=== PATIENT | female | born 1940 | race Caucasian/White ===

== ENCOUNTER 2022-01-24 03:50 | Inpatient (IN) | payer MEDICARE, BC ==
[~2022-01-24] VITALS: Ht 149.9 cm; Wt 71.2 kg
--- NOTE | 2022-01-24 03:57 | NUR ---
Dr Muhammad at bedside, MSE in progress
[2022-01-24] MEDS ORDERED: VANCOMYCIN IV 1,000 MG in IV DEXTROSE 5% 250 ML IV ONE (04:00)
[2022-01-24] MEDS ORDERED: VANCOMYCIN IV 200 ML ONE (04:18)
[2022-01-24 04:32] LABS: MEAN CORPUSCULAR HEMOGLOBIN 29.3 uug (24.7-32.8); MEAN CORPUSCULAR VOLUME 87.3 fL (75.5-95.3); PLATELET COUNT (AUTO) 198 K/uL (179-408)
[2022-01-24 04:34] LABS: CARBON DIOXIDE 31 mmol/L (21-32); CHLORIDE 106 mmol/L (98-107); CREATININE 0.7 mg/dL (0.6-1.3); GLUCOSE 116 mg/dL (74-106); POTASSIUM 2.9 mmol/L (3.5-5.1); UREA NITROGEN, BLOOD 7 mg/dL (7-18)
[2022-01-24 04:51] LABS: ALANINE AMINOTRANSFERASE 23 U/L (14-59); ALKALINE PHOSPHATASE 83 U/L (50-136); ASPARTATE AMINOTRANSFERASE 13 U/L (15-37); BILIRUBIN,DIRECT 0.3 mg/dL (0.0-0.2); BILIRUBIN,TOTAL 1.1 mg/dL (0.2-1.0); TOTAL PROTEIN, SERUM 6.5 g/dL (6.4-8.2)
[2022-01-24] MEDS ORDERED: POTASSIUM CHLORIDE 20 MEQ TAB.PRT.SR PO ONE (05:15)
[2022-01-24] MEDS ORDERED: POTASSIUM CHLORIDE 20 MEQ TAB.PRT.SR ONE (05:23)
--- NOTE | 2022-01-24 05:27 | NUR ---
Patient has been accepted by Tram Voss NP
[2022-01-24] MEDS ORDERED: HYDROCODONE/APAP 10-325 MG TABLET PO PRN (05:30)
[2022-01-24] MEDS ORDERED: ONDANSETRON 4 MG/2 ML VIAL IV PRN (05:30)
[2022-01-24] MEDS ORDERED: IV NS 1000 ML 1,000 ML IV PRN (05:30)
[2022-01-24] MEDS ORDERED: REMEDY ESSENTIAL ZINC PASTE 113 GM TP PRN (05:30)
[2022-01-24] MEDS ORDERED: CEFTRIAXONE 1 G in IV DEXTROSE 5% 50 ML IV SCH (05:30)
[2022-01-24] MEDS ORDERED: ACETAMINOPHEN 325 MG TABLET PO PRN (05:30)
[2022-01-24] MEDS ORDERED: POTASSIUM CHLORIDE 20 MEQ POWDER PACKET ONE (05:30)
[2022-01-24] MEDS ORDERED: POTASSIUM CHLORIDE 20 MEQ POWDER PACKET GT ONE (05:30)
[2022-01-24] MEDS ORDERED: MAGNESIUM HYDROXIDE 30 ML LIQUID UDC PO PRN (05:30)
[2022-01-24] MEDS ORDERED: CLOP75TA15 PO (07:22)
[2022-01-24] MEDS ORDERED: ZOLP10TA2 PO (07:22)
[2022-01-24] MEDS ORDERED: GABA600T12 PO (07:22)
[2022-01-24] MEDS ORDERED: TELM80TA2 PO (07:22)
[2022-01-24] MEDS ORDERED: FURO-152 PO (07:22)
[2022-01-24] MEDS ORDERED: NEBI20TA2 PO (07:22)
[2022-01-24] MEDS ORDERED: ASPI81TA31 PO (07:22)
[2022-01-24] MEDS ORDERED: CEFTRIAXONE /D5W 50ML IVPB **ER PYXIS IV ONE (07:28)
--- NOTE | 2022-01-24 09:15 | NUR ---
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 PT PRESENT IN ER WITH SWOLLEN LEANNE LOWER LEG. PT IS DX IS CELLULITIS. PT AO X4.AMBULATORY WITH ASSIST AND WALKER. NO PAIN COMPLAIN. NO SOB. NO ACUTE DISTRESS. PT HAS HISTORY OF CVA W/ R/SIDE WEAKNESS RESIDUAL. EDEMATOUS LEANNE LOWER LEG WITH INTACT BLISTER NO DRAINAGE. COVID NEG. PT WILL BE ADMITTED TO MED/SURG ON RM 301-A.
--- NOTE | 2022-01-24 09:58 | NUR ---
REPORT WAS GIVEN TO RN M/S. PT WAS TRANSFERED TO ROOM #301A.
--- NOTE | 2022-01-24 09:58 | NUR ---
pt arrived at the unitpt is on rm 301-a
--- NOTE | 2022-01-24 10:16 | NUR ---
WOUND CARE CONSULT: PT PRESENTS WITH EDEMA, REDNESS AND INTACT BLISTERS TO BILATYERAL LOWER LEGS, AREA OF EXCORIATION TO LEFT SIDE OF VULVA (PT REPORTS SCRATCHING HERSELF), AND REDNESS TO GLUTEAL CREASE, ALL PRESENT ON ADMISSION. RECOMMENDATIONS MADE FOR SKIN PROTECTION. DISCUSSED WITH NURSING STAFF. DIAPER WAS REMOVED. DPM CONSULT CALLED TO DR HAMPAPUR. BAUGH IN AGREEMENT WITH PLAN OF CARE.
[2022-01-24 12:42] VITALS: BP 109/68
[2022-01-24] MEDS ORDERED: NEBI10TA2 PO (15:51)
[2022-01-24] MEDS ORDERED: ATOR20TA PO (15:55)
[2022-01-24 16:00] VITALS: BP 147/68
[2022-01-24] MEDS: METOPROLOL TARTRATE 50 MG TABLET PO SCH (17:24)
[2022-01-24] MEDS: CLOTRIMAZOLE 1% CREAM 30 GM TUBE TOP SCH (17:24)
[2022-01-24] MEDS ORDERED: OXYB5TAB16 PO (18:23)
[2022-01-24 20:00] VITALS: BP 159/69
[2022-01-24] MEDS: GABAPENTIN 300 MG CAPSULE PO SCH (20:54)
[2022-01-24] MEDS: ZOLPIDEM 5 MG TABLET PO PRN (20:56)
[2022-01-25 04:00] VITALS: BP 122/52
[2022-01-25] MEDS: CEFTRIAXONE 1 G in IV DEXTROSE 5% 50 ML IV SCH (04:11)
[2022-01-25] MEDS ORDERED: CEFTRIAXONE 1 G in IV DEXTROSE 5% 50 ML IV SCH (06:00)
[2022-01-25] MEDS ORDERED: VANCOMYCIN IV 1,000 MG in IV DEXTROSE 5% 250 ML IV SCH (06:00)
[2022-01-25] MEDS: VANCOMYCIN IV 1,000 MG in IV DEXTROSE 5% 250 ML IV SCH (06:06)
--- NOTE | 2022-01-25 06:26 | NUR ---
uneventful night. pt slept throughout the night. gave ambien prn. no complain of pain. no acute distress noted. no sob noted. blister on leg still intact and covered up with dry gauze. swab for mrsa if popped per md.
[2022-01-25 07:32] LABS: HEMATOCRIT 33.3 % (31.2-41.9); MEAN CORPUSCULAR HEMOGLOBIN 29.7 uug (24.7-32.8); MEAN CORPUSCULAR VOLUME 87.6 fL (75.5-95.3); PLATELET COUNT (AUTO) 195 K/uL (179-408)
[2022-01-25] MEDS: FUROSEMIDE 20 MG TABLET PO SCH (08:03)
[2022-01-25] MEDS: VALSARTAN 160 MG TABLET PO SCH (08:03)
[2022-01-25] MEDS: CLOPIDOGREL 75 MG TABLET PO SCH (08:03)
[2022-01-25] MEDS: ASPIRIN 81 MG TAB.CHEW PO SCH (08:03)
[2022-01-25] MEDS: METOPROLOL TARTRATE 50 MG TABLET PO SCH ×2 (08:03→16:07)
[2022-01-25] MEDS: CLOTRIMAZOLE 1% CREAM 30 GM TUBE TOP SCH ×2 (08:04→16:07)
[2022-01-25 08:07] LABS: CREATININE 0.7 mg/dL (0.6-1.3); MAGNESIUM 1.6 mg/dL (1.8-2.4); PHOSPHOROUS 3.7 mg/dL (2.5-4.9); POTASSIUM 3.5 mmol/L (3.5-5.1)
[2022-01-25] MEDS ORDERED: NEBIVOLOL HCL PO SCH (09:00)
[2022-01-25] MEDS ORDERED: Medication Not On Formulary EA (Telmisartan (Micardis) 1 TAB) PO SCH (09:00)
[2022-01-25] MEDS: MAGNESIUM SULFATE/D5W 100 ML IV SCH ×2 (09:27→10:48)
[2022-01-25 11:16] VITALS: BP 107/74
[2022-01-25] MEDS ORDERED: OXYB10TA4 PO (12:44)
[2022-01-25 15:17] VITALS: BP 162/73
[2022-01-25 20:00] VITALS: BP 160/81
[2022-01-25] MEDS: OXYBUTYNIN XL 5 MG TABSR PO SCH (20:23)
[2022-01-25] MEDS: ATORVASTATIN 20 MG TABLET PO SCH (20:23)
[2022-01-25] MEDS: GABAPENTIN 300 MG CAPSULE PO SCH (20:23)
[2022-01-25] MEDS: ZOLPIDEM 5 MG TABLET PO PRN (20:24)
[2022-01-25] MEDS ORDERED: OXYBUTYNIN CHLORIDE 5 MG TABLET PO SCH (21:00)
[2022-01-25] MEDS ORDERED: ENOX40DI SQ (21:35)
[2022-01-26 04:00] VITALS: BP 143/57
[2022-01-26] MEDS: CEFTRIAXONE 1 G in IV DEXTROSE 5% 50 ML IV SCH (04:33)
[2022-01-26 06:46] LABS: HEMATOCRIT 36.6 % (31.2-41.9); MEAN CORPUSCULAR HEMOGLOBIN 29.3 uug (24.7-32.8); MEAN CORPUSCULAR VOLUME 87.6 fL (75.5-95.3); PLATELET COUNT (AUTO) 223 K/uL (179-408)
[2022-01-26 06:55] LABS: CREATININE 0.7 mg/dL (0.6-1.3); MAGNESIUM 2.3 mg/dL (1.8-2.4); PHOSPHOROUS 3.6 mg/dL (2.5-4.9); POTASSIUM 3.3 mmol/L (3.5-5.1)
[2022-01-26] MEDS: VANCOMYCIN IV 1,000 MG in IV DEXTROSE 5% 250 ML IV SCH (07:31)
[2022-01-26] MEDS: ASPIRIN 81 MG TAB.CHEW PO SCH (08:00)
[2022-01-26] MEDS: FUROSEMIDE 20 MG TABLET PO SCH (08:00)
[2022-01-26] MEDS: CLOTRIMAZOLE 1% CREAM 30 GM TUBE TOP SCH ×2 (08:00→16:13)
[2022-01-26] MEDS: CLOPIDOGREL 75 MG TABLET PO SCH (08:00)
[2022-01-26] MEDS: METOPROLOL TARTRATE 50 MG TABLET PO SCH ×2 (08:00→16:12)
[2022-01-26] MEDS: VALSARTAN 160 MG TABLET PO SCH (08:00)
[2022-01-26] MEDS ORDERED: POTASSIUM CHLORIDE 20 MEQ POWDER PACKET PO ONE (09:30)
[2022-01-26] MEDS ORDERED: FUROSEMIDE 40 MG/4 ML VIAL IV ONE (13:30)
[2022-01-26 16:24] VITALS: BP 159/81
[2022-01-26 20:26] VITALS: BP 143/56
[2022-01-26] MEDS: OXYBUTYNIN XL 5 MG TABSR PO SCH (22:33)
[2022-01-26] MEDS: ATORVASTATIN 20 MG TABLET PO SCH (22:33)
[2022-01-26] MEDS: ZOLPIDEM 5 MG TABLET PO PRN (22:34)
[2022-01-26] MEDS: GABAPENTIN 300 MG CAPSULE PO SCH (22:35)
[2022-01-27 04:04] VITALS: BP 114/58
[2022-01-27] MEDS: CEFTRIAXONE 1 G in IV DEXTROSE 5% 50 ML IV SCH (05:00)
--- NOTE | 2022-01-27 06:00 | NUR ---
[id number] remains a/ox4. vss. pt denies any c/o pain. iv i/p. gen. cond. has been stable. KAITY RN
[2022-01-27] MEDS: ASPIRIN 81 MG TAB.CHEW PO SCH (08:02)
[2022-01-27] MEDS: FUROSEMIDE 20 MG TABLET PO SCH (08:02)
[2022-01-27] MEDS: VALSARTAN 160 MG TABLET PO SCH (08:02)
[2022-01-27] MEDS: METOPROLOL TARTRATE 50 MG TABLET PO SCH (08:02)
[2022-01-27] MEDS: CLOPIDOGREL 75 MG TABLET PO SCH (08:02)
[2022-01-27] MEDS: CLOTRIMAZOLE 1% CREAM 30 GM TUBE TOP SCH (08:46)
[2022-01-27 09:08] LABS: CREATININE 0.9 mg/dL (0.6-1.3); POTASSIUM 3.4 mmol/L (3.5-5.1)
[2022-01-27] MEDS ORDERED: DOXY100C5 PO (10:38)
[2022-01-27 11:12] VITALS: BP 127/59
[2022-01-27] MEDS: VANCOMYCIN IV 1,000 MG in IV DEXTROSE 5% 250 ML IV SCH (11:29)
--- NOTE | 2022-01-27 14:10 | NUR ---
dc orders received noted and carried out.dc instruction and education given to the pt and her .dc heplock per Md orders,pt left the facility via private car in stable condition
== END 2022-01-27 14:00 | disposition home or self-care (01) | DRG 603 ==
LOC: ER 03:55 → MEDSURG3 09:28
PROVIDERS: ADMIT Registered Nurse; ATTEND Registered Nurse
DX: L03.116 Cellulitis of left lower limb (principal); L03.115 Cellulitis of right lower limb; E66.9 Obesity, unspecified; E78.5 Hyperlipidemia, unspecified; I50.9 Heart failure, unspecified; I11.0 Hypertensive heart disease with heart failure; Z68.31 Body mass index [BMI] 31.0-31.9, adult; S80.822A Blister (nonthermal), left lower leg, initial encounter; S80.821A Blister (nonthermal), right lower leg, initial encounter; X58.XXXA Exposure to other specified factors, initial encounter; Y93.9 Activity, unspecified; Y92.009 Unspecified place in unspecified non-institutional (private) residence as the place of occurrence of the external cause; M79.661 Pain in right lower leg; Z20.822 Contact with and (suspected) exposure to COVID-19
CPT/HCPCS: 36415; 71045; 83735; 84100; 85025; 85610; 87040; A4663; A6209; G0378; J0696; J1940; J3370; J3475; J7040; J7050